=== PATIENT | female | born 1975 | race Two or more races ===

== ENCOUNTER 2017-11-11 10:38 | Emergency (ER) | payer SELFPAY ==
[~2017-11-11] VITALS: Ht 167.6 cm; Wt 72.6 kg
[2017-11-11 11:01] VITALS: BP 123/85
[2017-11-11] MEDS ORDERED: IBUPROFEN600 MG ORAL (12:33)
[2017-11-11] MEDS ORDERED: ROBAXIN-750750 MG PO (12:33)
[2017-11-11 13:09] VITALS: BP 123/85
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
== END 2017-11-11 13:15 | disposition home or self-care (01) ==
LOC: EMR 12:00
DX: M54.2 Cervicalgia (principal); M54.5 Low back pain; V43.52XA Car driver injured in collision with other type car in traffic accident, initial encounter; Y92.410 Unspecified street and highway as the place of occurrence of the external cause
CPT/HCPCS: 99283